=== PATIENT | female | born 1930 | race Caucasian/White ===

== ENCOUNTER 2019-08-01 14:54 | Inpatient (IN) ==
--- NOTE | 2019-08-01 15:05 | Emergency Department Note ---
Disposition Clinical Impression: Lower GI bleed, Diverticulosis Disposition: Admitted As Inpatient Referrals: NONE,PCP [Non-Partnered Physician] - Forms: ED Satisfaction Letter Time of Disposition: 17:07 General Adult HPI - General Chief complaint: ED Nausea/Vomiting/Diarrhea Stated complaint: Cdiff or GI bleed Time Seen by Provider: 08/01/19 15:04 Source: patient, family Mode of arrival: private vehicle Limitations: no limitations Nursing Notes Reviewed: Yes Vital Signs Reviewed: Yes - History of Present Illness HPI Narrative: Patient is an 89-year-old female with a past medical history including COPD on 2 L of oxygen per nasal cannula, coronary artery disease, hypothyroidism, presenting with chief complaint of blood in her stool for the last 5 days. The patient states 2 weeks ago she had a mechanical fall on her buttock. She did not hit her head or lose consciousness. She states several days later, she developed constipation and did not have a bowel movement for approximately 5 days. About 5-6 days ago, she had an episode of loose watery stools and she took antidiarrheal medication. For the last 5 days, she has been having daily bowel movements. Approximately 1-3 times a day, she will have a brown bowel movements with maroon red coloring. It does not feel the stool however it is on the toilet paper and within the stool. The stool is soft. Patient states about 5 days ago, she did have a low-grade fever, mild headache and crampy abdominal pain. She states those symptoms have resolved and she took Tylenol but has not had any since. She notes a decreased appetite. She denies any nausea or vomiting. States she has only had a history of a section. She had a colonoscopy approximately 20 years ago. She is not on anticoagulation use. Primary care physician was called today and recommended the patient coming in further emergency Department to evaluate for GI bleed. Pain Scale: 0 - Related Data Home Medications Medication Instructions Recorded Confirmed Calcium Citrate 250 mg PO DAILY 09/01/15 09/01/15 Cetirizine HCl [Zyrtec] 10 mg PO DAILY 09/01/15 09/01/15 Levothyroxine [Synthroid] 75 mcg PO QAM 09/01/15 09/01/15 Previous Rx's Medication Instructions Recorded Omeprazole [PriLOSEC] 20 mg PO DAILY #30 capsule. 09/03/15 Allergies Allergy/AdvReac Type Severity Reaction Status Date / Time Cortisone AdvReac Unknown Hives Verified 09/01/15 11:17 All systems ED: reviewed and negative except as stated. Review of Systems: As Per HPI Constitutional: Denies: fever, chills Cardiovascular: Denies: chest pain, palpitations Respiratory: Denies: cough, dyspnea Gastrointestinal: Reports: nausea, diarrhea, hematochezia. Denies: abdominal pain, vomiting Genitourinary: Denies: dysuria Musculoskeletal: Denies: back pain, neck pain Neurological: Denies: weakness, numbness Past Medical History - Past Medical History Attestation: Yes The following information was validated with the patient. Source: patient Medical history: Reports: COPD, myocardial infarction, thyroid disease, other Surgical history: Reports: other Psychiatric history: Reports: no psych history PUBLIC ADDRESS SYSTEM INSTALLER history: Reports: no PUBLIC ADDRESS SYSTEM INSTALLER history - Social History Smoking Status: Never smoker Smokeless Tobacco Status: No Alcohol use: Reports: none Drug use: Reports: none Physical Exam - General Limitations: no limitations General appearance: alert, in no apparent distress - Head Head exam: atraumatic, normocephalic - Eye Eye exam: Present: normal appearance, EOMI - ENT ENT exam: normal exam, normal oropharynx - Neck Neck exam: Present: normal inspection, trachea midline - Chest Chest inspection: Present: normal inspection, symmetric chest wall rise - Respiratory Respiratory exam: Present: normal lung sounds bilaterally. Absent: respiratory distress, wheezes - Cardiovascular Cardiovascular exam: Present: regular rate, normal rhythm, normal heart sounds - Abdominal Exam Abdominal exam: Present: soft, Non-Tender. Absent: distention, guarding, rebound - Rectal Exam Rectal exam: Present: normal rectal tone, other (brown and maroon colored soft stool without rectal tears or external hemorrhoids, no internal hemorrhoids) - Extremities Exam Extremities exam: Present: full ROM, normal capillary refill, other (healing ecchymosis on her right buttocks) - Neurological Exam Neurological exam: Present: alert, oriented X3 - Psychiatric Psychiatric exam: Present: normal affect, normal mood - Skin Skin exam: Present: warm, dry Course Vital Signs Temperature 97.3 F L 08/01/19 14:54 Pulse Rate 71 08/01/19 14:54 Respiratory Rate 16 08/01/19 14:54 Blood Pressure 143/80 08/01/19 14:54 O2 Sat by Pulse Oximetry 99 08/01/19 14:54 Temperature 97.3 F L 08/01/19 14:54 Pulse Rate 71 08/01/19 14:54 Respiratory Rate 16 08/01/19 14:54 Blood Pressure 143/80 08/01/19 14:54 O2 Sat by Pulse Oximetry 99 08/01/19 14:54 Oxygen Delivery Oxygen Delivery Nasal Cannula Medical Decision Making - MDM Narrative Medical decision making narrative: Patient's vitals is within normal limits, she is afebrile. She is in no acute distress and has no acute complaints at this time other than having maroon colored stools. Rectal examination was performed and shows maroon-colored soft stools and was sent down for Hemoccult. We will obtain CBC, type and screen, BMP, lactate, CT abdomen and pelvis with IV contrast. Disposition is pending. Patient is not on anticoagulation use and she has never had a history of this before. Denies daily motrin/aleve use. 16:50 Labs and imaging reviewed. The patient likely has a diverticular bleed. There is posttraumatic hematoma on the right buttocks that is noted, there is no overlying ulceration or abscess on examination as there is healing ecchymosis from her fall several weeks ago. She had no tenderness to palpation. We will admit the patient for observation of hemoglobin and hematocrit and may need future colonoscopy. At this time vitals remained stable, she has no abdominal pain. 17:00 Discussed with admitting hospitalist who accepts admission - Medical Records Medical records reviewed: Yes I reviewed the patient's medical records. - Lab Data Lab results reviewed: Yes I reviewed the patient's lab results. Result diagrams: 08/01/19 15:40 08/01/19 15:40 Lab Results 08/01/19 08/01/19 08/01/19 Range/Units 15:20 15:40 15:40 WBC 8.5 (4.3-11.1) K/mcL RBC 4.16 (3.82-4.97) M/mcL Hgb 11.2 L (11.5-15.4) g/dL Hct 36.4 (35.3-44.9) % MCV 87.5 (83.0-100.0) fL MCH 26.9 L (28.0-33.3) pg MCHC 30.8 L (31.6-35.5) g/dL RDW 13.5 (11.5-14.5) % Plt Count 307 (140-400) K/mcL MPV 9.0 L (9.4-12.4) fL Immature Gran % 0.5 (0-4) % Seg Neutrophils % 73.5 % Lymphocytes % 18.6 % Monocytes % 4.3 % Eosinophils % 2.5 % Basophils % 0.6 % Neutrophils # 6.2 (1.6-8.9) K/mcL Lymphocytes # 1.6 (0.6-4.6) K/mcL Monocytes # 0.4 (0.0-1.3) K/mcL Eosinophils # 0.2 (0.0-0.6) K/mcL Basophils # 0.1 (0.0-0.2) K/mcL Sodium 138 (136-145) mEq/L Potassium 4.8 (3.5-5.1) mEq/L Chloride 100 (98-107) mEq/L Carbon Dioxide 33 H (23-29) mEq/L BUN 25 H (8-23) mg/dL Creatinine 1.53 H (0.60-1.20) mg/dL Est GFR ( Amer) 39 L (> 60) Est GFR (Non-Af Amer) 32 L (> 60) BUN/Creatinine Ratio 16 (6-26) Glucose 129 H (70-105) mg/dL Calculated Osmolality 292 (280-300) Lactic Acid (0.5-2.2) mmol/L Calcium 9.6 (8.6-10.3) mg/dL Stool Occult Bld Scrn Positive A (Negative) Blood Type Antibody Screen 08/01/19 08/01/19 Range/Units 15:40 15:40 WBC (4.3-11.1) K/mcL RBC (3.82-4.97) M/mcL Hgb (11.5-15.4) g/dL Hct (35.3-44.9) % MCV (83.0-100.0) fL MCH (28.0-33.3) pg MCHC (31.6-35.5) g/dL RDW (11.5-14.5) % Plt Count (140-400) K/mcL MPV (9.4-12.4) fL Immature Gran % (0-4) % Seg Neutrophils % % Lymphocytes % % Monocytes % % Eosinophils % % Basophils % % Neutrophils # (1.6-8.9) K/mcL Lymphocytes # (0.6-4.6) K/mcL Monocytes # (0.0-1.3) K/mcL Eosinophils # (0.0-0.6) K/mcL Basophils # (0.0-0.2) K/mcL Sodium (136-145) mEq/L Potassium (3.5-5.1) mEq/L Chloride (98-107) mEq/L Carbon Dioxide (23-29) mEq/L BUN (8-23) mg/dL Creatinine (0.60-1.20) mg/dL Est GFR ( Amer) (> 60) Est GFR (Non-Af Amer) (> 60) BUN/Creatinine Ratio (6-26) Glucose (70-105) mg/dL Calculated Osmolality (280-300) Lactic Acid 1.7 (0.5-2.2) mmol/L Calcium (8.6-10.3) mg/dL Stool Occult Bld Scrn (Negative) Blood Type O POSITIVE Antibody Screen NEGATIVE - Radiology Data Radiology results reviewed: Yes I reviewed the patient's radiology results. Abdomen/Pelvis CT 08/01/19 16:37 IMPRESSION: Focal fluid seen in the right gluteal region, with surrounding fat stranding. That may represent a posttraumatic hematoma or seroma along with a soft tissue contusion. However, correlate with any clinical evidence of infection. Also, correlate with any evidence of overlying skin ulceration. Cholelithiasis. Nonobstructing nephrolithiasis. Moderate-sized hiatal hernia. Moderate diverticulosis of the sigmoid colon, but without CT evidence of diverticulitis. D/ / Nimesh Benedict MD / Nimesh Benedict MD Interpreting Provider: Nimesh Benedict MD
[2019-08-01] MEDS ORDERED: 0.9 % Sodium Chloride 500 ML IVC ONE (15:23)
[2019-08-01] MEDS ORDERED: Isovue-370 500 ML BOTTLE IVP ONE (15:23)
[2019-08-01 15:53] LABS: Basophils # 0.1 K/mcL (0.0-0.2); Basophils % 0.6 %; Eosinophils # 0.2 K/mcL (0.0-0.6); Eosinophils % 2.5 %; Hematocrit 36.4 % (35.3-44.9); Hemoglobin 11.2 g/dL (11.5-15.4); Immature Granulocytes % 0.5 % (0-4); Lymphocytes # 1.6 K/mcL (0.6-4.6); Lymphocytes % 18.6 %; Mean Corpuscular HGB Conc 30.8 g/dL (31.6-35.5); Mean Corpuscular Hemoglobin 26.9 pg (28.0-33.3); Mean Corpuscular Volume 87.5 fL (83.0-100.0); Monocytes # 0.4 K/mcL (0.0-1.3); Monocytes % 4.3 %; Neutrophils # 6.2 K/mcL (1.6-8.9); Platelet Count 307 K/mcL (140-400); Red Blood Count 4.16 M/mcL (3.82-4.97); Red Cell Distribution Width 13.5 % (11.5-14.5); Segmented Neutrophils % 73.5 %; White Blood Count 8.5 K/mcL (4.3-11.1)
[2019-08-01 16:11] LABS: Calcium 9.6 mg/dL (8.6-10.3); Potassium 4.8 mEq/L (3.5-5.1)
--- NOTE | 2019-08-01 17:00 | Emergency Department Note ---
Disposition Clinical Impression: Lower GI bleed, Diverticulosis Disposition: Admitted As Inpatient Condition: Fair Forms: ED Satisfaction Letter Time of Disposition: 16:59 General Adult HPI - General Chief complaint: ED Nausea/Vomiting/Diarrhea Stated complaint: Cdiff or GI bleed Time Seen by Provider: 08/01/19 15:04 Source: patient, family Mode of arrival: private vehicle Limitations: no limitations Nursing Notes Reviewed: Yes Vital Signs Reviewed: Yes - History of Present Illness Pain Scale: 0 - Related Data Home Medications Medication Instructions Recorded Confirmed Calcium Citrate 250 mg PO DAILY 09/01/15 09/01/15 Cetirizine HCl [Zyrtec] 10 mg PO DAILY 09/01/15 09/01/15 Levothyroxine [Synthroid] 75 mcg PO QAM 09/01/15 09/01/15 Previous Rx's Medication Instructions Recorded Omeprazole [PriLOSEC] 20 mg PO DAILY #30 capsule. 09/03/15 Allergies Allergy/AdvReac Type Severity Reaction Status Date / Time Cortisone AdvReac Unknown Hives Verified 09/01/15 11:17 Constitutional: Denies: fever, chills Cardiovascular: Denies: chest pain, palpitations Respiratory: Denies: cough, dyspnea Gastrointestinal: Reports: nausea, diarrhea, hematochezia. Denies: abdominal pain, vomiting Genitourinary: Denies: dysuria Musculoskeletal: Denies: back pain, neck pain Neurological: Denies: weakness, numbness Past Medical History - Past Medical History Medical history: Reports: COPD, myocardial infarction, thyroid disease, other Surgical history: Reports: other Psychiatric history: Reports: no psych history MYSQL DATABASE ADMINISTRATOR history: Reports: no MYSQL DATABASE ADMINISTRATOR history - Social History Smoking Status: Never smoker Smokeless Tobacco Status: No Alcohol use: Reports: none Drug use: Reports: none Physical Exam - General Limitations: no limitations General appearance: alert, in no apparent distress Course Vital Signs Temperature 97.3 F L 08/01/19 14:54 Pulse Rate 71 08/01/19 14:54 Respiratory Rate 16 08/01/19 14:54 Blood Pressure 143/80 08/01/19 14:54 O2 Sat by Pulse Oximetry 99 08/01/19 14:54 Temperature 97.3 F L 08/01/19 14:54 Pulse Rate 71 08/01/19 14:54 Respiratory Rate 16 08/01/19 14:54 Blood Pressure 143/80 08/01/19 14:54 O2 Sat by Pulse Oximetry 99 08/01/19 14:54 Oxygen Delivery Oxygen Delivery Nasal Cannula Medical Decision Making - Lab Data Result diagrams: 08/01/19 15:40 08/01/19 15:40 Lab Results 08/01/19 08/01/19 08/01/19 Range/Units 15:20 15:40 15:40 WBC 8.5 (4.3-11.1) K/mcL RBC 4.16 (3.82-4.97) M/mcL Hgb 11.2 L (11.5-15.4) g/dL Hct 36.4 (35.3-44.9) % MCV 87.5 (83.0-100.0) fL MCH 26.9 L (28.0-33.3) pg MCHC 30.8 L (31.6-35.5) g/dL RDW 13.5 (11.5-14.5) % Plt Count 307 (140-400) K/mcL MPV 9.0 L (9.4-12.4) fL Immature Gran % 0.5 (0-4) % Seg Neutrophils % 73.5 % Lymphocytes % 18.6 % Monocytes % 4.3 % Eosinophils % 2.5 % Basophils % 0.6 % Neutrophils # 6.2 (1.6-8.9) K/mcL Lymphocytes # 1.6 (0.6-4.6) K/mcL Monocytes # 0.4 (0.0-1.3) K/mcL Eosinophils # 0.2 (0.0-0.6) K/mcL Basophils # 0.1 (0.0-0.2) K/mcL Sodium 138 (136-145) mEq/L Potassium 4.8 (3.5-5.1) mEq/L Chloride 100 (98-107) mEq/L Carbon Dioxide 33 H (23-29) mEq/L BUN 25 H (8-23) mg/dL Creatinine 1.53 H (0.60-1.20) mg/dL Est GFR ( Amer) 39 L (> 60) Est GFR (Non-Af Amer) 32 L (> 60) BUN/Creatinine Ratio 16 (6-26) Glucose 129 H (70-105) mg/dL Calculated Osmolality 292 (280-300) Lactic Acid (0.5-2.2) mmol/L Calcium 9.6 (8.6-10.3) mg/dL Stool Occult Bld Scrn Positive A (Negative) Blood Type Antibody Screen 08/01/19 08/01/19 Range/Units 15:40 15:40 WBC (4.3-11.1) K/mcL RBC (3.82-4.97) M/mcL Hgb (11.5-15.4) g/dL Hct (35.3-44.9) % MCV (83.0-100.0) fL MCH (28.0-33.3) pg MCHC (31.6-35.5) g/dL RDW (11.5-14.5) % Plt Count (140-400) K/mcL MPV (9.4-12.4) fL Immature Gran % (0-4) % Seg Neutrophils % % Lymphocytes % % Monocytes % % Eosinophils % % Basophils % % Neutrophils # (1.6-8.9) K/mcL Lymphocytes # (0.6-4.6) K/mcL Monocytes # (0.0-1.3) K/mcL Eosinophils # (0.0-0.6) K/mcL Basophils # (0.0-0.2) K/mcL Sodium (136-145) mEq/L Potassium (3.5-5.1) mEq/L Chloride (98-107) mEq/L Carbon Dioxide (23-29) mEq/L BUN (8-23) mg/dL Creatinine (0.60-1.20) mg/dL Est GFR ( Amer) (> 60) Est GFR (Non-Af Amer) (> 60) BUN/Creatinine Ratio (6-26) Glucose (70-105) mg/dL Calculated Osmolality (280-300) Lactic Acid 1.7 (0.5-2.2) mmol/L Calcium (8.6-10.3) mg/dL Stool Occult Bld Scrn (Negative) Blood Type O POSITIVE Antibody Screen NEGATIVE Attestation Statement - Attestation Attestation: I have seen this patient with the resident physician, I have personally e valuated this patient. I had reviewed the chart and document dictation by the resident physician and aM in agreement with the information documented by the resident physician. Please see documentation by the resident physician for complete chart including past medical history, family medical history, review of systems, current history and physical and laboratory and imaging studies. I was present for all procedures, provided direct supervision for all procedures, was present for the entirety of all procedures and provided direct guidance during the procedures. Please see documentation by the resident physician for any procedures performed. I have reviewed all interpretations of EKGs, and reviewed all EKGs performed on patient's as well. I have also reviewed reports of imaging as provided by radiology. Patient presented to the emergency department with chief complaint of rectal ble eding, she has noticed some dark stool for a couple of days seemed worse today. Denies headache neck pain chest pain shortness of breath fever chills cough sputum production abdominal pain. Denies bleeding from any other sources. Upon presentation, she is alert oriented 3 nontoxic in appearance in no acute distress cranial nerves are grossly intact. Lungs are clear heart is regular no murmurs rubs or gallops abdomen is soft and nontender. Rectal exam revealed maroon-colored stool Hemoccult-positive. Laboratory studies were within acceptable limits vital signs are within acceptable limits she is not on any blood thinners however is 89 years old with evidence of some borderline hematochezia with dark maroon purple stool. She will undergo a CT scan, and be admitted to the hospital CT scan showed diverticulosis no diverticulitis no other acute intra-abdominal process. Patient was admitted for further evaluation and management of lower GI bleeding.
[2019-08-01] MEDS ORDERED: Ondansetron 4 MG/2 ML VIAL IVP PRN (17:43)
--- NOTE | 2019-08-01 17:53 | Internal Med History&Physical ---
Date of Encounter: 08/01/19 Time of Encounter: 18:30 Internal Medicine - H&P: HPI Chief complaint: Lower GI bleed Admitted From: Home Plans for Post Hospital Care: Home History of present illness: Ms. Lee is a 89 year old female with history of COPD stage III, COPD on 2 L, type II DM, hypothyroidism who came into the hospital with her daughter due to 2 days history of lower GI bleed. As per the daughter, patient was constipated for 5 days and then she had stool softener daily to go when she started to have loose stools with bad smell. The daughter was not able to see the stool color as her mother To flush the toilet but she was able to see the toilet papers covered with blood. Patient denied any abdominal pain, nausea, vomiting, fever, recent antibiotic use or recent hospitalization. Patient also had a fall 2 weeks ago after she lost her balance and she fell on her buttocks. She had colonoscopy 20 years ago with finding of polyps. 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 In the ED, patient was hemodynamically stable, afebrile. The vertebrae workup revealed hemoglobin 11.2, creatinine 1.5, BUN [address] of the abdomen revealed focal fluid collection in the right gluteal region with surrounding fat stranding that may represent posttraumatic hematoma or seroma. Diverticulosis without diverticulitis, nonobstructing nephrolithiasis. He received IV fluids in the ED Past Med Surg Social Fam HX - Past Medical History Source: patient Medical history: COPD, kidney stones, myocardial infarction, thyroid disease, other Additional medical history: obstructive sleep apnea, hard of hearing Psychiatric history: no psych history - Past Surgical History Surgical History: other Additional surgical history: tubal ligation, kidney stone removal - Social History Smoking Status: Never smoker Smokeless Tobacco Status: No Alcohol use: none Drug use: none Current living situation: Home - Independent Activity Level: Uses cane/walker Recent Out of Country Travel Within the Last 8 Weeks: No Exposure or Possible Exposure to Illness During Travel: No - Family History Mother Living Status: Sister Living Status: - Additional Family History Additional family history: Reviewed and noncontributory, no family history of cancers. Internal Medicine - H&P: Meds Calcium Citrate 250 mg PO DAILY 09/01/15 [History] Cetirizine HCl [Zyrtec] 10 mg PO DAILY PRN 09/01/15 [History] Levothyroxine [Synthroid] 75 mcg PO QAM 09/01/15 [History] Aspirin [Lo-Dose Aspirin EC] 81 mg PO 08/01/19 [History] Cholecalciferol (D-3) [Vitamin D] 5,000 unit PO DAILY 08/01/19 [History] DiphenhydraMINE [Benadryl] 25 mg PO HS 08/01/19 [History] Vitamin B12 08/01/19 [History] Allergy/AdvReac Type Severity Reaction Status Date / Time Cortisone AdvReac Unknown Hives Verified 09/01/15 11:17 All Systems PM: A 10-system review of systems was performed and is negative for pertinent findings except as documented above in the HPI. - Constitutional Vitals: Temp Pulse Resp BP Pulse Ox 97.3 F L 75 20 144/67 96 08/01/19 14:54 08/01/19 17:12 08/01/19 17:12 08/01/19 17:12 08/01/19 17:12 Exam: General: Patient is alert, oriented 3. Head: Atraumatic, normal inspection, normocephalic. Eye: EOMI, PERRLA, no scleral icterus noted. ENT: Mucous membranes moist. Neck: Normal inspection, Respiratory: Scattered wheezing bilaterally Cardiovascular: Regular rate and regular rhythm, GI: Soft, nondistended, normal bowel sounds. Extremities:No joint swelling, pedal edema, or tenderness noted. Right buttock hematoma and swelling with minimal tenderness with palpation. Neurological: Alert, oriented 3, no focal deficits. Psychiatric: normal affect, normal mood. Skin: Dry, intact, warm. Normal color. No rashes. Internal Med - H&P Results - Labs CBC & Chem 7: 08/01/19 15:40 08/01/19 15:40 Labs: Short CBC 08/01/19 Range/Units 15:40 WBC 8.5 (4.3-11.1) K/mcL Hgb 11.2 L (11.5-15.4) g/dL Hct 36.4 (35.3-44.9) % Plt Count 307 (140-400) K/mcL Neutrophils # 6.2 (1.6-8.9) K/mcL BMP 08/01/19 15:40 Sodium 138 Potassium 4.8 Chloride 100 Carbon Dioxide 33 H BUN 25 H Creatinine 1.53 H Glucose 129 H Calcium 9.6 - Impressions ITS Impressions Abdomen/Pelvis CT 08/01/19 16:37 IMPRESSION: Focal fluid seen in the right gluteal region, with surrounding fat stranding. That may represent a posttraumatic hematoma or seroma along with a soft tissue contusion. However, correlate with any clinical evidence of infection. Also, correlate with any evidence of overlying skin ulceration. Cholelithiasis. Nonobstructing nephrolithiasis. Moderate-sized hiatal hernia. Moderate diverticulosis of the sigmoid colon, but without CT evidence of diverticulitis. D/ / Nimesh Benedict MD / Nimesh Benedict MD Interpreting Provider: Nimesh Benedict MD - Assessment and Plan (1) Hematochezia Current Visit: Yes Status: Acute (2) CKD (chronic kidney disease) stage 3, GFR 30-59 ml/min Current Visit: Yes Status: Chronic (3) Diverticulosis Current Visit: Yes Status: Chronic (4) COPD (chronic obstructive pulmonary disease) Current Visit: Yes Status: Chronic Qualifiers: COPD type: unspecified COPD Qualified Code(s): J44.9 - Chronic obstructive pulmonary disease, unspecified (5) DVT prophylaxis Current Visit: Yes Status: Acute - Summary of Assessment and Plan Summary of Assessment and Plan: Hematochezia: Suspected hemorrhoidal bleed. Hemoglobin is stable. Check CBC tomorrow, keep nothing by mouth and consult GI. Will check GI panel to rule out infection. Ckd stage III: Creatinine is stable, check BMP tomorrow Hypothyroidism: Continue home medication COPD: 2 L, albuterol as needed. DVT prophylaxis: scd - Time Spent With Patient Total time spent is greater than 50% in coordination of care (as documented) at patient's floor/unit and/or counseling patient:
[2019-08-01] MEDS ORDERED: Loratadine 10 MG TABLET PO PRN (17:57)
[2019-08-01 19:13] LABS: Potassium 4.6 mEq/L (3.5-5.1)
[2019-08-01 23:00] LABS: Hematocrit 34.4 % (35.3-44.9); Hemoglobin 10.3 g/dL (11.5-15.4)
[2019-08-01 23:52] LABS: Adenovirus F 40/41 PCR Not detected (Not detect); Astrovirus PCR Not detected (Not detect); C.difficile Toxin A/B Gene PCR Not detected (Not detect); Campylobacter by PCR Not detected (Not detect); Cryptosporidium by PCR Not detected (Not detect); Cyclospora cayetanensis PCR Not detected (Not detect); E. coli O157 by PCR Not detected (Not detect); Entamoeba histolytica PCR Not detected (Not detect); Enteroaggregative E.coli(EAEC) Not detected (Not detect); Enteropathogenic E.coli(EPEC) Not detected (Not detect); Enterotoxigenic E.coli (ETEC) Not detected (Not detect); Giardia lamblia PCR Not detected (Not detect); Norovirus GI/GII PCR Not detected (Not detect); Plesiomonas shigelloides PCR Not detected (Not detect); Rotavirus A PCR Not detected (Not detect); Salmonella PCR Not detected (Not detect); Sapovirus PCR Not detected (Not detect); Shig/EnteroinvasiveE coli EIEC Not detected (Not detect); Shigalike tox-prod E coli STEC Not detected (Not detect); Vibrio PCR Not detected (Not detect); Vibrio cholerae PCR Not detected (Not detect); Yersinia enterocolitica PCR Not detected (Not detect)
[2019-08-02 06:15] LABS: Hematocrit 33.1 % (35.3-44.9); Hemoglobin 9.9 g/dL (11.5-15.4); Mean Corpuscular HGB Conc 29.9 g/dL (31.6-35.5); Mean Corpuscular Hemoglobin 27.3 pg (28.0-33.3); Mean Corpuscular Volume 91.2 fL (83.0-100.0); Mean Platelet Volume 9.3 fL (9.4-12.4); Platelet Count 289 K/mcL (140-400); Red Blood Count 3.63 M/mcL (3.82-4.97); Red Cell Distribution Width 13.6 % (11.5-14.5); White Blood Count 6.9 K/mcL (4.3-11.1)
[2019-08-02 06:33] LABS: Prothrombin Time 11.7 Seconds (9.4-12.1)
[2019-08-02] MEDS: Aspirin Enteric Coated 81 MG Tablet PO SCH (08:43)
[2019-08-02] MEDS: Cholecalciferol (D-3) 1,000 UNIT (25MCG) TABLET PO SCH (08:43)
--- NOTE | 2019-08-02 11:00 | Internal Med Progress Note ---
Hospitalist Progress Note - Encounter Date of Encounter: 08/02/19 Time of Encounter: 08:20 - Subjective Interval History: Patient was seen this morning. She had 3 bowel movements yesterday night. As per the nurse, first one was bloody and the risks were black. Patient denied nausea/vomiting or abdominal pain. She has no fever, chills or night sweats. - Exam Vitals: Temp Pulse Resp BP Pulse Ox 98.3 F 81 20 142/82 99 08/02/19 10:47 08/02/19 10:47 08/02/19 10:47 08/02/19 10:47 08/02/19 10:47 Exam: General: Patient is alert, oriented 3. Head: Atraumatic, normal inspection, normocephalic. Eye: EOMI, PERRLA, no scleral icterus noted. ENT: Mucous membranes moist. Hard of hearing Neck: Normal inspection, Respiratory: Clear to auscultation Cardiovascular: Regular rate and regular rhythm, GI: Soft, nondistended, normal bowel sounds. Extremities:No joint swelling, pedal edema, or tenderness noted. Right buttock hematoma and swelling with minimal tenderness with palpation. Neurological: Alert, oriented 3, no focal deficits. Psychiatric: normal affect, normal mood. Skin: Dry, intact, warm. Normal color. No rashes. - Assessment and Plan (1) Hematochezia Current Visit: Yes Status: Acute (2) CKD (chronic kidney disease) stage 3, GFR 30-59 ml/min Current Visit: Yes Status: Chronic (3) Diverticulosis Current Visit: Yes Status: Chronic (4) COPD (chronic obstructive pulmonary disease) Current Visit: Yes Status: Chronic (5) DVT prophylaxis Current Visit: Yes Status: Acute - Summary of Assessment and Plan Summary of Assessment and Plan: Hematochezia: Hg dropped from 11.2 to 9.9 today. Check CBC tomorrow, consult GI. GI panel is - for infection. Ckd stage III: Creatinine is stable, check BMP tomorrow Hypothyroidism: Continue home medication COPD: 2 L, albuterol as needed. DVT prophylaxis: scd - Time Spent with Patient Total time spent is greater than 50% in coordination of care (as documented) at patient's floor/unit and/or counseling patient: Plan of Care Discussed with: patient Internal Medicine: Result - Labs CBC & Chem 7: 08/02/19 05:49 09/17/19 18:31 Labs: Short CBC 08/01/19 08/01/19 08/02/19 Range/Units 15:40 22:40 05:49 WBC 8.5 6.9 (4.3-11.1) K/mcL Hgb 11.2 L 10.3 L 9.9 L (11.5-15.4) g/dL Hct 36.4 34.4 L 33.1 L (35.3-44.9) % Plt Count 307 289 (140-400) K/mcL Neutrophils # 6.2 (1.6-8.9) K/mcL BMP 08/01/19 08/01/19 15:40 18:31 Sodium 138 140 Potassium 4.8 4.6 Chloride 100 103 Carbon Dioxide 33 H 33 H BUN 25 H 23 Creatinine 1.53 H 1.40 H Glucose 129 H 93 Calcium 9.6 9.0 - ABG Interpretation ABG results: PT/INR, D-dimer PT 11.7 Seconds (9.4-12.1) 08/02/19 05:49 - Impressions Impressions Abdomen/Pelvis CT 08/01/19 16:37 IMPRESSION: Focal fluid seen in the right gluteal region, with surrounding fat stranding. That may represent a posttraumatic hematoma or seroma along with a soft tissue contusion. However, correlate with any clinical evidence of infection. Also, correlate with any evidence of overlying skin ulceration. Cholelithiasis. Nonobstructing nephrolithiasis. Moderate-sized hiatal hernia. Moderate diverticulosis of the sigmoid colon, but without CT evidence of diverticulitis. D/ / Nimesh Benedict MD / Nimesh Benedict MD Interpreting Provider: Nimesh Benedict MD Consult Discharge Plan - Plan Referrals: NONE,PCP [Primary Care Provider] - (4) COPD (chronic obstructive pulmonary disease) Qualifiers: COPD type: unspecified COPD Qualified Code(s): J44.9 - Chronic obstructive pulmonary disease, unspecified
--- NOTE | 2019-08-02 12:15 | Gastroenterology Consult Note ---
<Nima Tovar - Last Filed: 08/02/19 12:12> Date of Encounter: 08/02/19 Time of Encounter: 10:20 - Assessment and plan (1) Anemia Current Visit: Yes Status: Acute Assessment and plan: On 06/13/2019 Hgb 13.1. On admission Hgb 11.2, and today Hgb 9.9. Fecal occult blood test positive. Continue to monitor CBC and transfuse PRBC as needed. Plan for colonoscopy tomorrow. Clear liquid diet today, no red or purple. NPO at midnight. If unable tolerate NuLytely please use MiraLAX prep. If not clear by 6 AM, give 2 tap water enemas. Qualifiers: Anemia type: unspecified type Qualified Code(s): D64.9 - Anemia, unspecified (2) Lower GI bleed Current Visit: Yes Status: Acute Assessment and plan: As above. - Time Spent With Patient Total time spent is greater than 50% in coordination of care (as documented) at patient's floor/unit and/or counseling patient: GI History of Present Illness - Data of Consult Patient: new to practice Consult date: 08/02/19 Requesting Physician: Vandana Bolaños - Consult Narrative Reason for consult: Lower GI bleed History of present illness: Ms. Lee is a 89 year old female with PMHx of COPD, [place], JEWEL, DM who presented to the ED with 2 days of lower GI bleed. She reports having large foul smelling BM after 5 days of constipation. Daughter reportsbright red blood with wiping. Patient denies any fever, chills, chest pain, abdominal pain, nausea, vomiting. Patient had BRBPR and black stools per RN. On 06/13/2019 Hgb 13.1, on admission Hgb 11.2, and today Hgb 9.9. Fecal occult blood test positive. Procedures: EGD 09/02/2015 Dr. Carr: Schatzki ring which was dilated, gastritis, duodenitis, medium hiatal hernia. EGD 12/26/2012 Dr. Novoa: Duodenal ulcer, gastritis, eosinophilic gastroenteritis. NSAIDs: ASA Anticoagulation: None Past Med Surg Social Fam HX - Past Medical History Medical history: COPD, kidney stones, myocardial infarction, thyroid disease, other Additional medical history: obstructive sleep apnea, hard of hearing Psychiatric history: no psych history - Past Surgical History Surgical History: Additional surgical history: tubal ligation, kidney stone removal - Social History Smoking Status: Never smoker Smokeless Tobacco Status: No Alcohol use: none Drug use: none - Family History Mother Living Status: Sister Living Status: - Gastrointestinal Gastrointestinal: Present: as per HPI - Constitutional Constitutional: as per HPI - EENT Eyes: as per HPI Ears: Present: as per HPI Nose, mouth and throat: Present: as per HPI - Cardiovascular Cardiovascular ROS: Present: as per HPI - Respiratory Respiratory IM: Present: as per HPI - Genitourinary Genitourinary: Absent: change in color, Urinary frequency - Neurological ROS Neurological GI: Present: as per HPI - Hematologic/Lymphatic Hematologic/Lymphatic pediatric: Present: as per HPI - Musculoskeletal Musculoskeletal ROS GI: Present: as per HPI - Integumentary Integumentary GI: Present: as per HPI - Psychiatric ROS Psychiatric GI: Present: as per HPI - Endocrine Endocrine IM: Present: as per HPI - Constitutional Vitals: Temp Pulse Resp BP Pulse Ox 98.3 F 81 20 142/82 99 08/02/19 10:47 08/02/19 10:47 08/02/19 10:47 08/02/19 10:47 08/02/19 10:47 General appearance: Present: cooperative, A&O X 3, no acute distress, answers questions appropriately - Head Head exam: Present: atraumatic, normocephalic - Eye Eye exam: Present: normal appearance, sclera anicteric - ENT ENT exam: Present: mucous membranes moist - Neck Neck exam general surgery: Present: normal inspection, trachea midline - Respiratory Respiratory exam: Present: CTAB. Absent: rales, rhonchi - Cardiovascular Cardiovascular exam: Present: RRR, +S1, +S2 - GI/Abdominal GI/Abdominal exam: Present: soft, no peritoneal signs. Absent: distended, firm, guarding, tenderness - Rectal Rectal exam: Present: deferred - Extremities Exam Extremities exam: Present: warm - Neurological Exam Neurological exam: Present: no focal deficits - Psychiatric Psychiatric exam: Present: normal affect, normal mood - Skin Skin exam: Present: dry, intact, normal color, warm Results - Labs CBC & Chem 7: 08/02/19 05:49 08/01/19 18:31 Labs: Entire Visit 08/02/19 08/02/19 05:49 05:49 Hgb 9.9 L Hct 33.1 L PT 11.7 - ABG ABG results: PT/INR, D-dimer PT 11.7 Seconds (9.4-12.1) 08/02/19 05:49 - Impressions Impressions Abdomen/Pelvis CT 08/01/19 16:37 IMPRESSION: Focal fluid seen in the right gluteal region, with surrounding fat stranding. That may represent a posttraumatic hematoma or seroma along with a soft tissue contusion. However, correlate with any clinical evidence of infection. Also, correlate with any evidence of overlying skin ulceration. Cholelithiasis. Nonobstructing nephrolithiasis. Moderate-sized hiatal hernia. Moderate diverticulosis of the sigmoid colon, but without CT evidence of diverticulitis. D/ / Nimesh Benedict MD / Nimesh Benedict MD Interpreting Provider: Nimesh Benedict MD Consult Discharge Plan - Plan Referrals: NONE,PCP [Primary Care Provider] - <Shira Carr - Last Filed: 08/02/19 17:25> Date of Encounter: 08/02/19 Time of Encounter: 14:00 - Time Spent With Patient Total time spent is greater than 50% in coordination of care (as documented) at patient's floor/unit and/or counseling patient: GI History of Present Illness - Data of Consult Requesting Physician: Vandana Bolaños - Consult Narrative History of present illness: Ms. Lee is a 89 year old female - Constitutional Vitals: Temp Pulse Resp BP Pulse Ox 98.4 F 76 15 143/80 100 08/02/19 14:12 08/02/19 14:12 08/02/19 14:12 08/02/19 14:12 08/02/19 14:12 Results - Labs CBC & Chem 7: 08/02/19 05:49 08/01/19 18:31 Labs: Entire Visit 08/02/19 08/02/19 05:49 05:49 Hgb 9.9 L Hct 33.1 L PT 11.7 - ABG ABG results: PT/INR, D-dimer PT 11.7 Seconds (9.4-12.1) 08/02/19 05:49 - Attending Attestation I have personally performed a face to face evaluation on this patient. I have reviewed and agree with the care plan. History and Exam by me shows: Patient seen denies any abdominal pain. Does admit of having bleeding per rectum. On examination: Abdomen is soft. Assessment: Patient with lower GI bleed with drop in hemoglobin still has some bleeding in her stool. Recommendation: Follow H&H colonoscopy in the morning
[2019-08-02 16:33] LABS: Bilirubin,Urine Small (Negative); Blood,Urine Large (Negative); Clarity,Urine Clear (Clear); Color,Urine Yellow (Yellow); Glucose,Urine (UA) Normal (Normal); Ketones,Urine Negative (Negative); Leukocyte Esterase,Urine Moderate (Negative); Nitrite,Urine Negative (Negative); PH,Urine 5.5 pH Units (5.0-8.0); Protein,Urine Negative (Neg-Trace); Specific Gravity,Urine 1.018 (1.010-1.025); Urobilinogen,Urine Normal (Normal)
[2019-08-02 16:36] LABS: Bacteria,Urine None Seen per hpf (None-Few); Hyaline Casts,Urine None Seen per lpf (None-Few); RBC,Urine 0-3 per hpf (0-3); Squamous Epithelial Cell,Urine Many per lpf (None-Few); WBC,Urine 15-30 per hpf (0-3)
[2019-08-02] MEDS ORDERED: SODIUM CHLORIDE/NAHCO3/KCL/PEG 4,000 ML SOLN.RECON PO ONE (17:00)
[2019-08-02] MEDS: Pantoprazole 40 MG VIAL IVP SCH (17:30)
[2019-08-03 05:14] LABS: Hematocrit 31.6 % (35.3-44.9); Hemoglobin 9.5 g/dL (11.5-15.4); Mean Corpuscular HGB Conc 30.1 g/dL (31.6-35.5); Mean Corpuscular Volume 89.8 fL (83.0-100.0); Mean Platelet Volume 9.1 fL (9.4-12.4); Platelet Count 324 K/mcL (140-400); Red Blood Count 3.52 M/mcL (3.82-4.97); Red Cell Distribution Width 13.7 % (11.5-14.5); White Blood Count 10.2 K/mcL (4.3-11.1)
[2019-08-03 05:36] LABS: Calcium 8.7 mg/dL (8.6-10.3); Potassium 4.3 mEq/L (3.5-5.1)
[2019-08-03] MEDS: Pantoprazole 40 MG VIAL IVP SCH (05:44)
[2019-08-03] MEDS: Cholecalciferol (D-3) 1,000 UNIT (25MCG) TABLET PO SCH (09:05)
[2019-08-03] MEDS: Aspirin Enteric Coated 81 MG Tablet PO SCH (09:05)
--- NOTE | 2019-08-03 11:46 | Anesthesia Evaluation PreOp ---
Date of Encounter: 08/03/19 Time of Encounter: 13:28 - Past History Planned Operation: colonoscopy Cardiac History: [place], HTN, Hyperlipidemia Pulmonary History: COPD (on O2) UTILITY PIPE LAYER History: Other ([place]) Other Medical History: Renal (hx stones, CKD 3), Diabetes Type II, Thyroid (hypo), Other (diverticulosis) Anesthesia History: No Prior Anesthetic Complications, Past Anesthesia (tubal, stones, egd) Alcohol Use: none Drug use: none Medications and Allergies Calcium Citrate 250 mg PO DAILY 09/01/15 [History] Cetirizine HCl [Zyrtec] 10 mg PO DAILY PRN 09/01/15 [History] Aspirin [Lo-Dose Aspirin EC] 81 mg PO DAILY 08/01/19 [History] Cholecalciferol (D-3) [Vitamin D] 5,000 unit PO DAILY 08/01/19 [History] DiphenhydraMINE [Benadryl] 25 mg PO HS 08/01/19 [History] Levothyroxine Sodium [Euthyrox] 75 mcg PO QAM 08/01/19 [History] Riboflavin [Vitamin B-2] 100 mg PO DAILY 08/01/19 [History] Allergy/AdvReac Type Severity Reaction Status Date / Time Cortisone AdvReac Unknown Hives Verified 09/01/15 11:17 - Meds/Allergy Pre-op Review Medications Reviewed: Yes Allergies Reviewed: Yes Beta Blockers on Current Med List: No Anesthesia Results - Labs 08/03/19 05:00 08/03/19 05:00 Anesthesia Exam Selected Entries 08/03/19 11:30 Temperature 98.1 F Pulse Rate 77 Respiratory Rate 18 Blood Pressure 135/66 O2 Sat by Pulse Oximetry 99 Oxygen Delivery Method Oxymask Weight: 61kg - HEENT Pupil (Motor): EOMI Mallampati: II Teeth: Edentulous Oral Opening: Greater than 3 - UTILITY PIPE LAYER LOC: Oriented UTILITY PIPE LAYER Motor: Normal RUE, Normal LUE, Normal RLE, Normal LLE, Normal Face UTILITY PIPE LAYER Sensory: Normal: RUE, LUE, RLE, LLE, Face - Cardiac Rhythm: Regular Murmur: None - Pulmonary Breath Sounds: bilateral Clear Respiratory Effort: Symmetrical Anesthesia Assess/Plan ASA Score: 3 Level of consciousness: Cooperative, Oriented Anesthetic Plan: MAC Monitoring Plan: Standard Monitors Recovery Plan: Other (agrees to MAC)
[2019-08-03 13:34] VITALS: BP 149/59
[2019-08-03] MEDS ORDERED: Lidocaine -MPF 2% 2 ML VIAL ONE (14:06)
[2019-08-03] MEDS ORDERED: *HR* Propofol 200 MG/20 ML VIAL IVP ONE (14:06)
--- NOTE | 2019-08-03 15:55 | Discharge Summary ---
- NOTES TO OUTPATIENT PROVIDER Notes to Outpatient Provider: Patient was admitted for lower GI bleed. Colonoscopy showed internal hemorrhoids. She will be discharged on fiber diet. Check CBC in 5 days Date of Encounter: 08/03/19 Time of Encounter: 10:00 - Discharge Diagnosis (1) Hematochezia Priority: Primary Status: Resolved (2) CKD (chronic kidney disease) stage 3, GFR 30-59 ml/min Priority: Secondary Status: Chronic (3) Diverticulosis Priority: Secondary Status: Chronic (4) COPD (chronic obstructive pulmonary disease) Priority: Secondary Status: Chronic Qualifiers: COPD type: unspecified COPD Qualified Code(s): J44.9 - Chronic obstructive pulmonary disease, unspecified (5) DVT prophylaxis Priority: Secondary Status: Acute Hospital course: Ms. Lee is a 89 year old female who was managing the hospital for lower GI bleed. Colonoscopy revealed diverticulosis with internal hemorrhoids. Hemoglobin remained stable and patient will be discharged home in stable condition. Check CBC in 3-5 days. Discharge discussed with: patient - Time Spent with Patient Total time spent providing and/or coordinating discharge services: 35 minutes - Discharge Medications Prescriptions: New Psyllium Husk/Aspartame [Metamucil [facility] Powder] 660 gm PO BID #60 powder Continued Cetirizine HCl [Zyrtec] 10 mg PO DAILY PRN PRN Reason: Allergy Symptoms Calcium Citrate 250 mg PO DAILY DiphenhydraMINE [Benadryl] 25 mg PO HS Cholecalciferol (D-3) [Vitamin D] 5,000 unit PO DAILY Aspirin [Lo-Dose Aspirin EC] 81 mg PO DAILY Riboflavin [Vitamin B-2] 100 mg PO DAILY Levothyroxine Sodium [Euthyrox] 75 mcg PO QAM Home Medications: Calcium Citrate 250 mg PO DAILY 09/01/15 [History] Cetirizine HCl [Zyrtec] 10 mg PO DAILY PRN 09/01/15 [History] Aspirin [Lo-Dose Aspirin EC] 81 mg PO DAILY 08/01/19 [History] Cholecalciferol (D-3) [Vitamin D] 5,000 unit PO DAILY 08/01/19 [History] DiphenhydraMINE [Benadryl] 25 mg PO HS 08/01/19 [History] Levothyroxine Sodium [Euthyrox] 75 mcg PO QAM 08/01/19 [History] Riboflavin [Vitamin B-2] 100 mg PO DAILY 08/01/19 [History] Psyllium Husk/Aspartame [Metamucil [facility] Powder] 660 gm PO BID #60 powder 08/03/19 [Rx] Allergies/Adverse Reactions: Allergy/AdvReac Type Severity Reaction Status Date / Time Cortisone AdvReac Unknown Hives Verified 09/01/15 11:17 Date of admission: 08/03/19 10:42 Primary care physician: PCP NONE Consults: 08/01/19 17:45 Consult to Gastroenterology [CONS] Routine Consulting Provider: Gastroenterology [facility] Reason for Consult: lower GI bleed Call Completed: No - Constitutional Vitals: Temp Pulse Resp BP Pulse Ox 97.6 F 80 22 149/59 100 08/03/19 13:31 08/03/19 13:31 08/03/19 13:31 08/03/19 13:31 08/03/19 13:31 Exam: General: Patient is alert, oriented 3. Head: Atraumatic, normal inspection, normocephalic. Eye: EOMI, PERRLA, no scleral icterus noted. ENT: Mucous membranes moist. Hard of hearing Neck: Normal inspection, Respiratory: Clear to auscultation Cardiovascular: Regular rate and regular rhythm, GI: Soft, nondistended, normal bowel sounds. Extremities:No joint swelling, pedal edema, or tenderness noted. Right buttock hematoma and swelling with minimal tenderness with palpation. Neurological: Alert, oriented 3, no focal deficits. Psychiatric: normal affect, normal mood. Skin: Dry, intact, warm. Normal color. No rashes. - Patient Status Disposition: Home, Self-Care Condition: Good Functional capacity at discharge: uses cane/walker Overall status at discharge: patient is back to baseline - Discharge Instructions Follow Up With: NONE,PCP [Primary Care Provider] - - Diet and Activity Activity: increase activity as tolerated Diet: low salt diet
== END 2019-08-03 18:21 | disposition home or self-care (01) | DRG 379 ==
LOC: 3ANU 14:54 → EMEROOARM 14:54 → SUATTDRO 17:23 → 3ANU 18:15
PROVIDERS: ADMIT Internal Medicine; ATTEND Internal Medicine

== ENCOUNTER 2019-08-09 09:50 | Observation (INO) ==
--- NOTE | 2019-08-09 10:06 | Emergency Department Note ---
Disposition Clinical Impression: Acute electrocardiogram changes, Elevated troponin Anemia Qualifiers: Anemia type: unspecified type Qualified Code(s): D64.9 - Anemia, unspecified GI bleeding Qualifiers: GI bleed type/associated pathology: unspecified gastrointestinal hemorrhage type Qualified Code(s): K92.2 - Gastrointestinal hemorrhage, unspecified Disposition: Admitted As Inpatient Condition: Good Time of Disposition: 11:47 General Adult HPI - General Chief complaint: ED GI Bleed Stated complaint: Low Hemoglobin Time Seen by Provider: 08/09/19 10:02 Source: patient, family Limitations: no limitations Nursing Notes Reviewed: Yes Vital Signs Reviewed: Yes - History of Present Illness HPI Narrative: 89-year-old female who presents the emergency department with complaints of weakness and low blood count per her primary care physician. Patient was recently admitted for a colonoscopy and since that time went home, continued to feel weak and had some episodes of melena which have now resolved. She otherwise states she feels fatigued but denies any chest pain. She does experience worsening shortness of breath, she is on home 3 L oxygen but has been using her inhalers more frequently. She otherwise denies any hematochezia, abdominal pain, nausea, vomiting. Pain Scale: 0 - Related Data Home Medications Medication Instructions Recorded Confirmed Calcium Citrate 250 mg PO DAILY 09/01/15 08/09/19 Aspirin [Lo-Dose Aspirin EC] 81 mg PO HS 08/01/19 08/09/19 Cholecalciferol (D-3) [Vitamin D] 5,000 unit PO DAILY 08/01/19 08/09/19 DiphenhydraMINE [Benadryl] 25 mg PO HS 08/01/19 08/09/19 Levothyroxine Sodium [Euthyrox] 75 mcg PO QAM 08/01/19 08/09/19 Riboflavin [Vitamin B-2] 100 mg PO DAILY 08/01/19 08/09/19 Benefiber 4 gm PO DAILY 08/09/19 08/09/19 Albuterol Sulfate [Albuterol 1 puff PO Q4H PRN 08/10/19 08/10/19 Sulfate Hfa] Symbicort 160/4.5 2 inh PO BID 08/10/19 08/10/19 Previous Rx's Medication Instructions Recorded Omeprazole [PriLOSEC] 40 mg PO DAILY 15 Days #15 cap 08/11/19 Allergies Allergy/AdvReac Type Severity Reaction Status Date / Time Cortisone AdvReac Unknown Hives Verified 09/01/15 11:17 Review of Systems: ROS per history of present illness, all other systems reviewed and negative or normal. All systems ED: reviewed and negative except as stated. Review of Systems: As Per HPI Past Medical History - Past Medical History Medical history: Reports: COPD, kidney stones, myocardial infarction, thyroid d isease, other Surgical history: Reports: Psychiatric history: Reports: no psych history SOUVENIR ASSEMBLER history: Reports: no SOUVENIR ASSEMBLER history - Social History Smoking Status: Never smoker Smokeless Tobacco Status: No Alcohol use: Reports: none Drug use: Reports: none Physical Exam General: Conversant. No apparent distress. Follow commands. Appears stated age. Neck: No JVD. Trachea midline. Neck supple. Eyes: PERRL. No scleral icterus. Scleral pallor. HENT: Normocephalic and atraumatic. Moist mucus membranes. Cardiovascular: Regular rate and rhythm. Normal S1 and S2. No murmurs appreciated. Normal capillary refill. Extremities well perfused with 2+ distal pulses bilaterally. No edema. Pulmonary: Normal and equal breath sounds bilaterally, anteriorly and posteriorly. No wheezes, rales, or rhonchi. Not in respiratory distress. Speaks in full sentences. Abdomen: Soft, nondistended, and tontender. No bruits or masses. No guarding. Neuro: Alert and oriented x3. No slurred speech. No focal deficits noted. Skin:Diffuse pallor. Musculoskeletal: No bony abnormalities visualized. Moves all extremities. Psych: Normal mood. Pleasant. Makes appropriate eye contact. - General Limitations: no limitations General appearance: alert, in no apparent distress Course Vital Signs Temperature 99.0 F 08/09/19 09:56 Pulse Rate 83 08/09/19 09:56 Respiratory Rate 16 08/09/19 09:56 Blood Pressure 148/55 08/09/19 09:56 O2 Sat by Pulse Oximetry 100 08/09/19 09:56 Temperature 99.0 F 08/09/19 09:56 Pulse Rate 83 08/09/19 09:56 Respiratory Rate 16 08/09/19 09:56 Blood Pressure 148/55 08/09/19 09:56 O2 Sat by Pulse Oximetry 100 08/09/19 09:56 Oxygen Delivery Oxygen Delivery Room Air Medical Decision Making - [facility] Narrative Medical decision making narrative: 89-year-old female who presents emergency department with complaints of weakness and low hemoglobin. The patient was seen in her outpatient provider and found to be anemic down to 7.2. When she left the hospital on 08/03 her hemoglobin was 9.2. The patient does have symptoms of anemia with weakness, increased shortness of breath and intermittent episodes of lightheadedness. She appears pale but has no evidence of hypotension, tachycardia or instability. She denies any chest pain. Laboratory evaluation shows hemoglobin drop from yesterday from 7.2-7.0. Otherwise the patient does have slightly elevated troponin of 0.10. She does have new T-wave inversions in the lateral leads on EKG, likely from symptomatic anemia and demand ischemia. Given continued symptomatic anemia we will transfuse 2 units packed red blood cells and admitted to the hospital for further evaluation especially given her colonoscopy was unable to fully visualize the entirety of the colon. Discussed case with on-call hospitalist Dr. Salgado who agrees with plan for admission and accepts the patient to the inpatient service. Patient agrees with and understands course of treatment plan including plan for admission. All questions answered. - Medical Records Medical records reviewed: Yes I reviewed the patient's medical records. - Lab Data Lab results reviewed: Yes I reviewed the patient's lab results. Result diagrams: 08/11/19 09:27 08/10/19 03:39 Lab Results 08/09/19 08/09/19 08/09/19 Range/Units 10:10 10:10 10:10 WBC 11.0 (4.3-11.1) K/mcL RBC 2.61 L (3.82-4.97) M/mcL Hgb 7.0 L (11.5-15.4) g/dL Hct 23.8 L (35.3-44.9) % MCV 91.2 (83.0-100.0) fL MCH 26.8 L (28.0-33.3) pg MCHC 29.4 L (31.6-35.5) g/dL RDW 14.4 (11.5-14.5) % Plt Count 288 (140-400) K/mcL MPV 9.4 (9.4-12.4) fL Immature Gran % 0.4 (0-4) % Seg Neutrophils % 75.6 % Lymphocytes % 15.6 % Monocytes % 5.1 % Eosinophils % 2.8 % Basophils % 0.5 % Neutrophils # 8.3 (1.6-8.9) K/mcL Lymphocytes # 1.7 (0.6-4.6) K/mcL Monocytes # 0.6 (0.0-1.3) K/mcL Eosinophils # 0.3 (0.0-0.6) K/mcL Basophils # 0.1 (0.0-0.2) K/mcL PT 11.3 (9.4-12.1) Seconds INR 1.0 Sodium 140 (136-145) mEq/L Potassium 4.3 (3.5-5.1) mEq/L Chloride 100 (98-107) mEq/L Carbon Dioxide 35 H (23-29) mEq/L BUN 18 (8-23) mg/dL Creatinine 1.32 H (0.60-1.20) mg/dL Est GFR ( Amer) 46 L (> 60) Est GFR (Non-Af Amer) 38 L (> 60) BUN/Creatinine Ratio 14 (6-26) Glucose 139 H (70-105) mg/dL Calculated Osmolality 294 (280-300) Calcium 9.9 (8.6-10.3) mg/dL Troponin I 0.10 H* (< 0.04) ng/mL Blood Type Antibody Screen Crossmatch 08/09/19 Range/Units 10:10 WBC (4.3-11.1) K/mcL RBC (3.82-4.97) M/mcL Hgb (11.5-15.4) g/dL Hct (35.3-44.9) % MCV (83.0-100.0) fL MCH (28.0-33.3) pg MCHC (31.6-35.5) g/dL RDW (11.5-14.5) % Plt Count (140-400) K/mcL MPV (9.4-12.4) fL Immature Gran % (0-4) % Seg Neutrophils % % Lymphocytes % % Monocytes % % Eosinophils % % Basophils % % Neutrophils # (1.6-8.9) K/mcL Lymphocytes # (0.6-4.6) K/mcL Monocytes # (0.0-1.3) K/mcL Eosinophils # (0.0-0.6) K/mcL Basophils # (0.0-0.2) K/mcL PT (9.4-12.1) Seconds INR Sodium (136-145) mEq/L Potassium (3.5-5.1) mEq/L Chloride (98-107) mEq/L Carbon Dioxide (23-29) mEq/L BUN (8-23) mg/dL Creatinine (0.60-1.20) mg/dL Est GFR ( Amer) (> 60) Est GFR (Non-Af Amer) (> 60) BUN/Creatinine Ratio (6-26) Glucose (70-105) mg/dL Calculated Osmolality (280-300) Calcium (8.6-10.3) mg/dL Troponin I (< 0.04) ng/mL Blood Type O POSITIVE Antibody Screen NEGATIVE Crossmatch See Detail - Radiology Data Radiology results reviewed: Yes I reviewed the patient's radiology results. - EKG Data EKG #1 EKG attestation: Yes I reviewed and interpreted this EKG. EKG results narrative: Normal sinus rhythm rate of 79. Normal axis. Normal intervals. There are ST inversions in V2 through V6 otherwise no ST depressions or elevations. When compared with prior from 03/05/19 these T-wave inversions are new. Attestation Statement - Attestation Attestation: I have seen this patient with the resident physician, I have personally evaluated this patient. I had reviewed the chart and document dictation by the resident physician and aM in agreement with the information documented by the resident physician. Please see documentation by the resident physician for c omplete chart including past medical history, family medical history, review of systems, current history and physical and laboratory and imaging studies. I was present for all procedures, provided direct supervision for all procedures, was present for the entirety of all procedures and provided direct guidance during the procedures. Please see documentation by the resident physician for any procedures performed. I have reviewed all interpretations of EKGs, and reviewed all EKGs performed on patient's as well. I have also reviewed reports of imaging as provided by radiology.
[2019-08-09 10:42] LABS: Basophils # 0.1 K/mcL (0.0-0.2); Basophils % 0.5 %; Eosinophils # 0.3 K/mcL (0.0-0.6); Eosinophils % 2.8 %; Hematocrit 23.8 % (35.3-44.9); Immature Granulocytes % 0.4 % (0-4); Lymphocytes # 1.7 K/mcL (0.6-4.6); Lymphocytes % 15.6 %; Mean Corpuscular HGB Conc 29.4 g/dL (31.6-35.5); Mean Corpuscular Hemoglobin 26.8 pg (28.0-33.3); Mean Corpuscular Volume 91.2 fL (83.0-100.0); Mean Platelet Volume 9.4 fL (9.4-12.4); Monocytes # 0.6 K/mcL (0.0-1.3); Monocytes % 5.1 %; Neutrophils # 8.3 K/mcL (1.6-8.9); Platelet Count 288 K/mcL (140-400); Red Blood Count 2.61 M/mcL (3.82-4.97); Red Cell Distribution Width 14.4 % (11.5-14.5); Segmented Neutrophils % 75.6 %
[2019-08-09 10:50] LABS: Calcium 9.9 mg/dL (8.6-10.3); Potassium 4.3 mEq/L (3.5-5.1)
[2019-08-09 10:53] LABS: Prothrombin Time 11.3 Seconds (9.4-12.1)
[2019-08-09] MEDS ORDERED: Pantoprazole 40 MG VIAL IVP ONE (10:54)
[2019-08-09 10:55] LABS: Troponin I 0.1 ng/mL (< 0.04)
--- NOTE | 2019-08-09 10:55 | Emergency Department Note ---
Disposition Clinical Impression: Anemia, Acute electrocardiogram changes, Elevated troponin, GI bleeding Disposition: Admitted As Inpatient Condition: Serious Forms: ED Satisfaction Letter Time of Disposition: 10:58 General Adult HPI - General Chief complaint: ED GI Bleed Stated complaint: Low Hemoglobin Time Seen by Provider: 08/09/19 10:02 Source: patient, family Mode of arrival: ambulatory Limitations: no limitations Nursing Notes Reviewed: Yes Vital Signs Reviewed: Yes - History of Present Illness Pain Scale: 0 - Related Data Home Medications Medication Instructions Recorded Confirmed Calcium Citrate 250 mg PO DAILY 09/01/15 08/01/19 Cetirizine HCl [Zyrtec] 10 mg PO DAILY PRN 09/01/15 08/01/19 Aspirin [Lo-Dose Aspirin EC] 81 mg PO DAILY 08/01/19 08/01/19 Cholecalciferol (D-3) [Vitamin D] 5,000 unit PO DAILY 08/01/19 08/01/19 DiphenhydraMINE [Benadryl] 25 mg PO HS 08/01/19 08/01/19 Levothyroxine Sodium [Euthyrox] 75 mcg PO QAM 08/01/19 08/01/19 Riboflavin [Vitamin B-2] 100 mg PO DAILY 08/01/19 08/01/19 Previous Rx's Medication Instructions Recorded Psyllium Husk/Aspartame [Metamucil 660 gm PO DAILY #30 powder 08/03/19 [facility] Powder] Allergies Allergy/AdvReac Type Severity Reaction Status Date / Time Cortisone AdvReac Unknown Hives Verified 09/01/15 11:17 All systems ED: reviewed and negative except as stated. Review of Systems: As Per HPI Past Medical History - Past Medical History Medical history: Reports: COPD, kidney stones, myocardial infarction, thyroid disease, other Surgical history: Reports: Psychiatric history: Reports: no psych history SEAFOOD AND SERVICE MEAT MANAGER history: Reports: no SEAFOOD AND SERVICE MEAT MANAGER history - Social History Smoking Status: Never smoker Smokeless Tobacco Status: No Alcohol use: Reports: none Drug use: Reports: none Physical Exam - General Limitations: no limitations General appearance: alert, in no apparent distress Course Vital Signs Temperature 99.0 F 08/09/19 09:56 Pulse Rate 83 08/09/19 09:56 Respiratory Rate 16 08/09/19 09:56 Blood Pressure 148/55 08/09/19 09:56 O2 Sat by Pulse Oximetry 100 09/25/19 09:56 Temperature 99.0 F 08/09/19 09:56 Pulse Rate 83 08/09/19 09:56 Respiratory Rate 16 08/09/19 09:56 Blood Pressure 148/55 08/09/19 09:56 O2 Sat by Pulse Oximetry 100 08/09/19 09:56 Oxygen Delivery Oxygen Delivery Room Air Medical Decision Making - Lab Data Result diagrams: 08/09/19 10:10 08/09/19 10:10 Lab Results 08/09/19 08/09/19 Range/Units 10:10 10:10 WBC 11.0 (4.3-11.1) K/mcL RBC 2.61 L (3.82-4.97) M/mcL Hgb 7.0 L (11.5-15.4) g/dL Hct 23.8 L (35.3-44.9) % MCV 91.2 (83.0-100.0) fL MCH 26.8 L (28.0-33.3) pg MCHC 29.4 L (31.6-35.5) g/dL RDW 14.4 (11.5-14.5) % Plt Count 288 (140-400) K/mcL MPV 9.4 (9.4-12.4) fL Immature Gran % 0.4 (0-4) % Seg Neutrophils % 75.6 % Lymphocytes % 15.6 % Monocytes % 5.1 % Eosinophils % 2.8 % Basophils % 0.5 % Neutrophils # 8.3 (1.6-8.9) K/mcL Lymphocytes # 1.7 (0.6-4.6) K/mcL Monocytes # 0.6 (0.0-1.3) K/mcL Eosinophils # 0.3 (0.0-0.6) K/mcL Basophils # 0.1 (0.0-0.2) K/mcL Sodium 140 (136-145) mEq/L Potassium 4.3 (3.5-5.1) mEq/L Chloride 100 (98-107) mEq/L Carbon Dioxide 35 H (23-29) mEq/L BUN 18 (8-23) mg/dL Creatinine 1.32 H (0.60-1.20) mg/dL Est GFR ( Amer) 46 L (> 60) Est GFR (Non-Af Amer) 38 L (> 60) BUN/Creatinine Ratio 14 (6-26) Glucose 139 H (70-105) mg/dL Calculated Osmolality 294 (280-300) Calcium 9.9 (8.6-10.3) mg/dL Attestation Statement - Attestation Attestation: I have seen this patient with the resident physician, I have personally evaluated this patient. I had reviewed the chart and document dictation by the resident physician and aM in agreement with the information documented by the resident physician. Please see documentation by the resident physician for complete chart including past medical history, family medical history, review of systems, current history and physical and laboratory and imaging studies. I was present for all procedures, provided direct supervision for all procedures, was present for the entirety of all procedures and provided direct guidance during the procedures. Please see documentation by the resident physician for any procedures performed. I have reviewed all interpretations of EKGs, and reviewed all EKGs performed on patient's as well. I have also reviewed reports of imaging as provided by radiology. Patient presents emergency Department with decreased hemoglobin and weakness. He states he just does not have any energy she has no get up and go left. She states that she was just recently admitted she had a colonoscopy which was for lower GI bleeding but the family and the patient reports they could not get past the splenic flexure and see high enough, and did not take any biopsies did not see obvious sources of bleeding. The bleeding seemed to slow down and no more bright red blood but then she started having dark stool but now her stool today was not as dark. She states that she has no headache or neck pain chest pain and no palpitations no urinary changes no new swelling she is on aspirin typically but has not taken this for a week and a half is on no other blood thinners. On presentation she is pale in appearance conjunctival pallor and pallor of the nailbeds however is alert awake and talking, hemodynamically normal without ta chycardia without hypotension. Cranial nerves are intact heart is regular no significant murmurs rubs or gallops or JVD lungs are clear abdomen is soft and nontender trace to 1+ bilateral lower extremity edema, no unilateral swelling palpable cord calf tenderness homicidal or clinical evidence of DVT. Reviewed outpatient laboratory studies which did show hemoglobin of 7.2 decreased from 9.4. EKG was obtained, which demonstrated increased lateral T-wave inversions from prior EKG no ST elevation or ST depression no other acute change normal sinus rhythm. Basic laboratory studies were ordered. Type and screen and transfusion was ordered. Patient was given 1 dose of IV Protonix, secondary to reported dark stools, although reported that these are had slowed down and now appeared normal. She will be admitted to the hospital for further evaluation and management, her repeat CBC demonstrated hemoglobin was 7.0 decreased from 7.2 from yesterday. Patient admitted for transfusion and further evaluation of progressive anemia. Troponin was also found to be mildly elevated at 0.1, she has current bleeding and anemia, this is likely demand ischemia related to anemia, no indication for blood thinner she has no chest pain again does have some EKG changes, and transfusion initiated for this, this will require further evaluation in the hospital. She remained alert awake and talking here in the emergency department, without chest pain, without hypotension or tachycardia. Total critical care time as provided by myself excluding any procedures performed was 30 minutes.
[2019-08-09] MEDS ORDERED: 0.9 % Sodium Chloride 250 ML ONE (11:15)
[2019-08-09] MEDS ORDERED: Acetaminophen 325 MG TABLET PO PRN (14:32)
[2019-08-09] MEDS ORDERED: Ondansetron 4 MG/2 ML VIAL IVP PRN (14:32)
[2019-08-09] MEDS ORDERED: Naloxone 0.4 MG/ML INJ IVP PRN (14:32)
--- NOTE | 2019-08-09 14:39 | Internal Med History&Physical ---
Date of Encounter: 08/09/19 Time of Encounter: 13:00 Internal Medicine - H&P: HPI Admitted From: Emergency Dept Plans for Post Hospital Care: Home History of present illness: Ms. Lee is a 89 year old female with a history of COPD, CAD parietal myocardial infarction hypothyroidism and GI bleed. She stated that she was seen last week for GI bleed had colonoscopy however the study was limited due to colonic strictures. She says she was discharged on the however continue to have melenic stools until Wednesday. She had a follow-up appointment with her primary care physician and upon laboratory workup was noted to be severely anemic as such was referred to the ED to be evaluated. Patient endorses a history of chronic respiratory failure on 3 L of oxygen therapy but of late she has been quite fatigued and dyspneic and has had to use her inhalers more frequently. She reports worsening shortness of breath and generalized weakness for the past 3 days. Patient's daughter Genoveva can be reached cell phone [phone]. Among her initial work up ED was a CBC which revealed a hemoglobin of 7, hemoglobin at discharge on July 24 was 9.5, stable CKD noted on BMP and an elevated troponin but she denies any chest pain. EKG obtained at the EGD also showed new T-wave inversion in lateral leads but otherwise no ST segment elevation or depression Past Med Surg Social Fam HX - Past Medical History Medical history: COPD, kidney stones, myocardial infarction, thyroid disease, other Additional medical history: Diverticulosis Psychiatric history: no psych history - Past Surgical History Surgical History: Additional surgical history: tubal ligation, kidney stone removal - Social History Smoking Status: Former smoker Smokeless Tobacco Status: No Alcohol use: none Drug use: none - Family History Mother Living Status: Sister Living Status: Internal Medicine - H&P: Meds Calcium Citrate 250 mg PO DAILY 09/01/15 [History] Aspirin [Lo-Dose Aspirin EC] 81 mg PO HS 08/01/19 [History] Cholecalciferol (D-3) [Vitamin D] 5,000 unit PO DAILY 08/01/19 [History] DiphenhydraMINE [Benadryl] 25 mg PO HS 08/01/19 [History] Levothyroxine Sodium [Euthyrox] 75 mcg PO QAM 08/01/19 [History] Riboflavin [Vitamin B-2] 100 mg PO DAILY 08/01/19 [History] Benefiber 4 gm PO DAILY 08/09/19 [History] Allergy/AdvReac Type Severity Reaction Status Date / Time Cortisone AdvReac Unknown Hives Verified 09/01/15 11:17 All Systems PM: A 10-system review of systems was performed and is negative for pertinent findings except as documented above in the HPI. Review of systems: GENERAL: Denies fever, chills, fatigue or night sweats. Reports generalized fatigue and weakness DERMATOLOGIC: Denies itch, rash or lesions HEENT: Denies headache, blurriness, diplopia or decreased visual acuity, ear pain, tinnitus, rhinorrhea, sinus tenderness or sore throat RESPIRATORY: Reports SOB, denies cough, hemoptysis or pleuritic chest pain CARDIOVASCULAR: Denies chest pain, LE edema, palpitation or syncope reported dyspnea on mild exertion GASTRO INTESTINAL: Denies cramps, nausea/vomiting, diarrhea or constipation, melena MUSCULOSKELATAL: Denies muscle pain/weakness, joint tenderness/pain or swelling PSYCH: Denies worsening anxiety, or depression NEURO: Denies vertigo, dizziness, or ataxia GENITURINARY: Denies dysuria, nocturia or urinary incontinence - Constitutional Vitals: Temp Pulse Resp BP Pulse Ox 97.5 F L 75 16 146/66 99 08/09/19 13:45 08/09/19 13:45 08/09/19 13:45 08/09/19 13:45 08/09/19 13:42 Exam: GENERAL: Obese female NAD, A&O x3, pleasant and conversant, daughter at the bedside SKIN: No skin lesions or rashes, non-jaundiced EYES: EOMI, PERRLA, no sclera icterus HENT: Head atraumatic, no facial asymmetry, frontal and maxillary sinus non- tender, normal hearing, oropharynx and mucosa moist and without any exudates NECK: No cervical lymphadenopathy, trachea midline, thyroid is palpable does not appear enlarged LUNGS: vesicular breath sounds, clear to auscultation, no wheeze, rhonchi, rales or crackles. Non labored respirations HEART: Normal rate and rhythm, no murmurs or rubs ABDOMEN: soft, non-tender, non-distended, bowel sounds x 4 normoactive EXTRMITIES: No LE asymmetry, No LE edema, pedal pulses 1+ and radial pulses 2 + and equal bilaterally NEURO: Speech and comprehension appears intact. PSYCH: Cooperative, non- anxious or irritable, mood and affect is appropriate Internal Med - H&P Results - Labs CBC & Chem 7: 08/09/19 14:53 08/09/19 10:10 Labs: Short CBC 08/09/19 Range/Units 10:10 WBC 11.0 (4.3-11.1) K/mcL Hgb 7.0 L (11.5-15.4) g/dL Hct 23.8 L (35.3-44.9) % Plt Count 288 (140-400) K/mcL Neutrophils # 8.3 (1.6-8.9) K/mcL BMP 08/09/19 10:10 Sodium 140 Potassium 4.3 Chloride 100 Carbon Dioxide 35 H BUN 18 Creatinine 1.32 H Glucose 139 H Calcium 9.9 Cardiac Enzymes 08/09/19 Range/Units 10:10 Troponin I 0.10 H* (< 0.04) ng/mL - Assessment and Plan (1) Acute blood loss anemia Current Visit: Yes Status: Acute Assessment and plan: Patient with recent diagnosis of diverticulosis, recent admission for GI bleed. She currently started the melenic episodes stopped Wednesday before she presented. We will trend H&H she has been transfused 2 units packed red blood cells in the stool guaiac (2) Elevated troponin Current Visit: Yes Status: Acute Assessment and plan: Troponin 1 was elevated at 0.1 in the setting of acute blood loss anemia likely type II demand ischemia she denies any chest pain we will trend (3) CKD (chronic kidney disease) stage 3, GFR 30-59 ml/min Current Visit: Yes Status: Chronic Assessment and plan: Creatinines of 1.32 is at baseline of 1.28-1.54 monitor clinically correlate (4) COPD (chronic obstructive pulmonary disease) Current Visit: Yes Status: Chronic Assessment and plan: This is no COPD exacerbation DuoNeb ordered Qualifiers: COPD type: unspecified COPD Qualified Code(s): J44.9 - Chronic obstructive pulmonary disease, unspecified (5) DVT prophylaxis Current Visit: Yes Status: Acute Assessment and plan: SCDs due to GI bleed - Time Spent With Patient Total time spent is greater than 50% in coordination of care (as documented) at patient's floor/unit and/or counseling patient:
[2019-08-09 15:19] LABS: Hematocrit 28.2 % (35.3-44.9)
[2019-08-09 15:25] LABS: Hemoglobin 8.7 g/dL (11.5-15.4)
[2019-08-09] MEDS ORDERED: 0.9 % Sodium Chloride Mini Bag 100 ML ONE (15:59)
[2019-08-09] MEDS ORDERED: Ipratropium/Albuterol Neb 3 ML IH PRN (20:27)
[2019-08-09 21:12] LABS: Hematocrit 32.6 % (35.3-44.9); Hemoglobin 10.2 g/dL (11.5-15.4)
--- NOTE | 2019-08-09 21:35 | Electrocardiograph Report ---
[address] [place] [address] Test Date: 2019-08-09 Pat Name: Leslee Lee Department: [id number] Room: 3A13 Gender: Garnetter: : 1930 Requested By: Jolynn Rubalcava Order Number: [id number] Reading MD: Jeanne Hager Measurements Intervals [place] Rate: 79 P: -9 NM: 184 QRS: 16 QRSD: 78 T: 168 QT: 354 QTc: 406 Interpretive Statements Sinus rhythm Abnormal R-wave progression, early transition Repol abnrm suggests ischemia, diffuse leads Electronically Signed On 08-09-2019 21:33:39 EDT by Jeanne Hager
[2019-08-10 04:32] LABS: Basophils # 0.1 K/mcL (0.0-0.2); Basophils % 0.6 %; Eosinophils # 0.4 K/mcL (0.0-0.6); Hematocrit 34.1 % (35.3-44.9); Hemoglobin 10.8 g/dL (11.5-15.4); Immature Granulocytes % 0.3 % (0-4); Lymphocytes # 2.3 K/mcL (0.6-4.6); Lymphocytes % 21.3 %; Mean Corpuscular HGB Conc 31.7 g/dL (31.6-35.5); Mean Corpuscular Volume 88.3 fL (83.0-100.0); Mean Platelet Volume 9.4 fL (9.4-12.4); Monocytes # 0.6 K/mcL (0.0-1.3); Neutrophils # 7.5 K/mcL (1.6-8.9); Platelet Count 280 K/mcL (140-400); Red Blood Count 3.86 M/mcL (3.82-4.97); Red Cell Distribution Width 14.4 % (11.5-14.5); Segmented Neutrophils % 68.8 %; White Blood Count 10.9 K/mcL (4.3-11.1)
[2019-08-10 04:53] LABS: Calcium 9.1 mg/dL (8.6-10.3); Magnesium 1.9 mg/dL (1.6-2.6)
[2019-08-10] MEDS: Pantoprazole 40 MG VIAL IVP SCH (08:45)
[2019-08-10 10:37] LABS: Hematocrit 37.9 % (35.3-44.9)
[2019-08-10] MEDS: Budesonide/Formoterol 160/4.5 1 PUFF INH IH SCH ×2 (10:39→20:43)
[2019-08-10 10:55] LABS: % Iron Saturation 19 % (15-50); Iron 68 mcg/dL (50-170); Transferrin 257 mg/dL (203-362)
[2019-08-10 11:13] LABS: Ferritin 49 ng/mL (10-120)
--- NOTE | 2019-08-10 11:15 | Internal Med Progress Note ---
Hospitalist Progress Note - Encounter Date of Encounter: 08/10/19 Time of Encounter: 11:13 - Subjective Interval History: Patient was seen and examined at bedside today. Pt reports some wekness howere, she reports she felt much better than yesterday. She denies chest pain, palpitation, and difficulty in breathing. She denies fever, chills, nausea, vomiting and diarrhea. - Exam Vitals: Temp Pulse Resp BP Pulse Ox 98.4 F 73 18 176/90 98 08/10/19 07:00 08/10/19 07:00 08/10/19 10:40 08/10/19 07:00 08/10/19 10:40 Exam: General: A & O 3, In no acute distress CVS S1 and S2 regular, no murmur RS: Clear to air entry bilaterally, no wheeze, no crackles Abdomen: Soft and nontender. Bowel sounds normal 4 Extremities: No cyanosis, clubbing, and edema Neurology: Cranial 2 through 12 normal. Motor strength 5/5 bilaterally. Sensation intact Psychiatry: A and O X 3 - Assessment and Plan (1) Acute blood loss anemia Current Visit: Yes Status: Acute Assessment and Plan: Patient was admitted yesterday for lower GI bleed. Patient recently was admitted for lower GI bleed and had colonoscopy done which was difficult due to scope could not pass through sigmoid colon. Patient's hemoglobin yesterday was 7. Patient is status post PRBC 2. Trend H&H. Hemoglobin this morning is 12.2 GI on consult Plan to do EGD today. If EGD is completely normal then planto do a colonoscopy tomorrow. (2) Elevated troponin Current Visit: Yes Status: Acute Assessment and Plan: in the setting acute blood loss anemia likely type II demand ischemia she denies any chest pain we will trend troponin. (3) CKD (chronic kidney disease) stage 3, GFR 30-59 ml/min Current Visit: Yes Status: Chronic Assessment and Plan: Abdomen today has trended down to 1.2 which appears to be patient's baseline creatinine. We will continue to monitor. (4) COPD (chronic obstructive pulmonary disease) Current Visit: Yes Status: Chronic Assessment and Plan: Continue DuoNeb, Symbicort, and rescue inhaler. (5) Hypothyroidism (acquired) Current Visit: Yes Status: Chronic Assessment and Plan: Continue levothyroxine 75 g daily. (6) DVT prophylaxis Current Visit: Yes Status: Acute Assessment and Plan: SCDs due to GI bleed - Time Spent with Patient Total time spent is greater than 50% in coordination of care (as documented) at patient's floor/unit and/or counseling patient: 25 - 35 minutes Plan of Care Discussed with: patient Internal Medicine: Result - Labs CBC & Chem 7: 08/10/19 10:19 08/10/19 03:39 Labs: Short CBC 08/09/19 08/09/19 08/10/19 Range/Units 14:53 20:41 03:39 WBC 10.9 (4.3-11.1) K/mcL Hgb 8.7 L D 10.2 L D 10.8 L (11.5-15.4) g/dL Hct 28.2 L 32.6 L 34.1 L (35.3-44.9) % Plt Count 280 (140-400) K/mcL Neutrophils # 7.5 (1.6-8.9) K/mcL 08/10/19 Range/Units 10:19 WBC (4.3-11.1) K/mcL Hgb 12.0 (11.5-15.4) g/dL Hct 37.9 (35.3-44.9) % Plt Count (140-400) K/mcL Neutrophils # (1.6-8.9) K/mcL BMP 08/10/19 03:39 Sodium 141 Potassium 4.0 Chloride 101 Carbon Dioxide 34 H BUN 14 Creatinine 1.23 H Glucose 107 H Calcium 9.1 Cardiac Enzymes 08/09/19 08/09/19 Range/Units 20:41 22:51 Troponin I 0.17 H* 0.16 H* (< 0.04) ng/mL - ABG Interpretation ABG results: PT/INR, D-dimer PT 11.3 Seconds (9.4-12.1) 08/09/19 10:10 Consult Discharge Plan - Plan Referrals: Estella Amos APN [Primary Care Provider] - (4) COPD (chronic obstructive pulmonary disease) Qualifiers: COPD type: unspecified COPD Qualified Code(s): J44.9 - Chronic obstructive pulmonary disease, unspecified
[2019-08-10 11:19] LABS: Folate 8.7 ng/mL (3.0-16.0)
--- NOTE | 2019-08-10 12:11 | Gastroenterology Consult Note ---
<Nima Tovar - Last Filed: 08/10/19 12:08> Date of Encounter: 08/10/19 Time of Encounter: 10:25 - Assessment and plan (1) Anemia Current Visit: Yes Status: Acute Assessment and plan: Hgb 7.2 on 08/08 and PCP sent patient to ED for evaluation. On arrival to the ED Hgb 7, she received 2 units PRBC and Hgb 10.8 this AM. Continue to monitor CBC and transfuse PRBC as needed. Plan forEGD today to r/o esophagitis, gastritis, duodenitis, PUD, MW tear, or AVM. Plan for EGD today to r/o esophagitis, gastritis, duodenitis, PUD, MW tear, or AVM. Keep NPO for scope. If EGD negative will consider repeating colonoscopy tomorrow. Qualifiers: Anemia type: unspecified type Qualified Code(s): D64.9 - Anemia, unspecified (2) GI bleeding Current Visit: Yes Status: Acute Assessment and plan: As above. Qualifiers: GI bleed type/associated pathology: unspecified gastrointestinal hemorrhage type Qualified Code(s): K92.2 - Gastrointestinal hemorrhage, unspecified - Time Spent With Patient Total time spent is greater than 50% in coordination of care (as documented) at patient's floor/unit and/or counseling patient: GI History of Present Illness - Data of Consult Patient: known to practice within the last 3 years Consult date: 08/10/19 Requesting Physician: South Zaman MD - Consult Narrative Reason for consult: Lower GI bleed History of present illness: Ms. Lee is a 89 year old female with PMHx of COPD, [place], JEWEL, diverticulosis, and recent GI bleed. She was admitted 08/01 with rectal bleeding with Hgb 11.2. Cscope completed 08/03 and was unable to pass scope through sigmoid colon, no blood seen, internal hemorrhoids and diverticulosis found. She was discharged 08/03 with Hgb 9.5. She reports having dark stool at home and complains of feeling weak. Hgb 7.2 on 08/08 and PCP sent patient to ED for evaluation. On arrival to the ED Hgb 7, she received 2 units PRBC and Hgb 10.8 this AM. We have been consulted to evaluate her anemia. Procedures: Colonoscopy 08/03/2019 Dr. Carr: Sigmoid colon very fixed and unable to pass scope past the sigmoid colon; diverticulosis and internal hemorrhoids were found. EGD 09/02/2015 Dr. Carr: Schatzki ring which was dilated, gastritis, duodenitis, medium hiatal hernia. EGD 12/26/2012 Dr. Novoa: Duodenal ulcer, gastritis, eosinophilic gastroenteritis. NSAIDs: ASA Anticoagulation: None Past Med Surg Social Fam HX - Past Medical History Medical history: COPD, kidney stones, myocardial infarction, thyroid disease, other Additional medical history: Diverticulosis Psychiatric history: no psych history - Past Surgical History Surgical History: Additional surgical history: tubal ligation, kidney stone removal - Social History Smoking Status: Former smoker Smokeless Tobacco Status: No Alcohol use: none Drug use: none - Family History Mother Living Status: Sister Living Status: - Gastrointestinal Gastrointestinal: Present: as per HPI - Constitutional Constitutional: as per HPI - EENT Eyes: as per HPI Ears: Present: as per HPI Nose, mouth and throat: Present: as per HPI - Cardiovascular Cardiovascular ROS: Present: as per HPI - Respiratory Respiratory IM: Present: as per HPI - Genitourinary Genitourinary: Absent: change in color, Urinary frequency - Neurological ROS Neurological GI: Present: as per HPI - Hematologic/Lymphatic Hematologic/Lymphatic pediatric: Present: as per HPI - Musculoskeletal Musculoskeletal ROS GI: Present: as per HPI - Integumentary Integumentary GI: Present: as per HPI - Psychiatric ROS Psychiatric GI: Present: as per HPI - Endocrine Endocrine IM: Present: as per HPI - Constitutional Vitals: Temp Pulse Resp BP Pulse Ox 98.3 F 74 18 155/75 100 08/10/19 11:05 08/10/19 11:05 08/10/19 10:40 08/10/19 11:05 08/10/19 11:05 General appearance: Present: cooperative, A&O X 3, no acute distress, answers questions appropriately - Head Head exam: Present: atraumatic, normocephalic - Eye Eye exam: Present: normal appearance, sclera anicteric - ENT ENT exam: Present: mucous membranes dry - Neck Neck exam general surgery: Present: normal inspection, trachea midline - Respiratory Respiratory exam: Present: decreased breath sounds, CTAB. Absent: rales, rhonchi - Cardiovascular Cardiovascular exam: Present: RRR, +S1, +S2 - GI/Abdominal GI/Abdominal exam: Present: soft, no peritoneal signs. Absent: distended, firm, guarding, tenderness - Rectal Rectal exam: Present: deferred - Extremities Exam Extremities exam: Present: warm - Neurological Exam Neurological exam: Present: no focal deficits - Psychiatric Psychiatric exam: Present: normal affect, normal mood - Skin Skin exam: Present: dry, intact, normal color, warm Results - Labs CBC & Chem 7: 08/10/19 10:19 08/10/19 03:39 Labs: Last Result 08/10/19 08/10/19 08/10/19 03:39 07:40 10:19 Calcium 9.1 Iron % Saturation Transferrin Ferritin Vitamin B12 900 Folate 8.7 Stool Occult Blood Positive A 08/10/19 10:19 Calcium Iron 68 % Saturation 19 Transferrin 257 Ferritin 49 Vitamin B12 Folate Stool Occult Blood Entire Visit 08/10/19 08/10/19 08/10/19 03:39 10:19 10:19 Hgb 10.8 L 12.0 Hct 34.1 L 37.9 Ferritin Folate 8.7 08/10/19 10:19 Hgb Hct Ferritin 49 Folate - ABG ABG results: PT/INR, D-dimer PT 11.3 Seconds (9.4-12.1) 08/09/19 10:10 Consult Discharge Plan - Plan Referrals: Estella Amos APN [Primary Care Provider] - <Shira Carr - Last Filed: 08/10/19 18:08> Date of Encounter: 08/10/19 Time of Encounter: 14:00 - Time Spent With Patient Total time spent is greater than 50% in coordination of care (as documented) at patient's floor/unit and/or counseling patient: GI History of Present Illness - Data of Consult Requesting Physician: South Zaman MD - Consult Narrative History of present illness: Ms. Lee is a 89 year old female - Constitutional Vitals: Temp Pulse Resp BP Pulse Ox 98.4 F 67 16 147/84 94 08/10/19 18:01 08/10/19 18:01 08/10/19 18:01 08/10/19 18:01 08/10/19 18:01 Results - Labs CBC & Chem 7: 08/10/19 10:19 08/10/19 03:39 Labs: Last Result 08/10/19 08/10/19 08/10/19 07:40 10:19 10:19 Iron 68 % Saturation 19 Transferrin 257 Ferritin 49 Vitamin B12 900 Folate 8.7 Stool Occult Blood Positive A Entire Visit 08/10/19 08/10/19 08/10/19 10:19 10:19 10:19 Hgb 12.0 Hct 37.9 Ferritin 49 Folate 8.7 - ABG ABG results: PT/INR, D-dimer PT 11.3 Seconds (9.4-12.1) 08/09/19 10:10 - Attending Attestation I have personally performed a face to face evaluation on this patient. I have reviewed and agree with the care plan. History and Exam by me shows: pt seen. Per patient she was the having dark stool till Wednesday but none since then. On examination: Abdomen is soft.A: Blood loss anemia with dark stool. Rule out gastric etiology. Recommendation: EGD today. Follow H&H
[2019-08-10] MEDS: 0.9 % Sodium Chloride 1,000 ML IVC SCH (12:16)
[2019-08-10] MEDS ORDERED: *HR* Midazolam HCl 5 MG/5 ML VIAL IVP ONE ×2 (16:37→17:21)
[2019-08-10] MEDS ORDERED: *HR* FentaNYL (PF) 100 MCG/2 ML VIAL ONE (16:37)
[2019-08-10] MEDS ORDERED: Simethicone 40 MG/0.6 ML MLS IR ONE (17:21)
[2019-08-10] MEDS ORDERED: *HR* FentaNYL (PF) 100 MCG/2 ML VIAL IVP ONE (17:21)
--- NOTE | 2019-08-10 17:22 | Pre-Sedation Evaluation ---
Pre-sedation evaluation - Pre-sedation checklist Date of procedure: 08/10/19 Procedure: egd Recent Vitals: Last Vital Signs Temp 98.6 F 08/10/19 17:09 Pulse 83 08/10/19 17:20 Resp 18 08/10/19 17:20 BP 175/84 08/10/19 17:20 Pulse Ox 96 08/10/19 17:20 H&P (including ROS) documented in medical record: Yes Previous reaction to sedatives/anesthetics: No Dietary Status: NPO after Midnight Dentition: dentures removed ASA Classification *see protocol: CLASS III-Severe systemic disease
[2019-08-10] MEDS ORDERED: *HR* Metoprolol 5 MG/5 ML VIAL IVP PRN (17:50)
[2019-08-11] MEDS: Budesonide/Formoterol 160/4.5 1 PUFF INH IH SCH (07:43)
[2019-08-11] MEDS: Pantoprazole 40 MG VIAL IVP SCH (09:05)
[2019-08-11] MEDS: 0.9 % Sodium Chloride 1,000 ML IVC SCH (09:05)
--- NOTE | 2019-08-11 09:32 | Discharge Summary ---
- NOTES TO OUTPATIENT PROVIDER Notes to Outpatient Provider: Pt was admitted for the dark stool and GI bleed. Patient received 2 PRBC. Patient had EGD done which was unremarkable. GI was not consulted. Patient will be discharged in stable condition. Follow up with GI in 2 weeks. Plan for colonoscopy outpatient. Will put PCP within one week to repeat H&H. Date of Encounter: 08/11/19 Time of Encounter: 09:25 - Discharge Diagnosis (1) Acute blood loss anemia Priority: Primary Status: Acute (2) Elevated troponin Priority: Secondary Status: Acute (3) CKD (chronic kidney disease) stage 3, GFR 30-59 ml/min Priority: Secondary Status: Chronic (4) COPD (chronic obstructive pulmonary disease) Priority: Secondary Status: Chronic Qualifiers: COPD type: unspecified COPD Qualified Code(s): J44.9 - Chronic obstructive pulmonary disease, unspecified (5) Hypothyroidism (acquired) Priority: Secondary Status: Chronic (6) DVT prophylaxis Priority: Secondary Status: Acute Hospital course: Ms. Lee is a 89 year old female was admitted for the dark stool and GI bleed. Patient received 2 PRBC. Patient had EGD done which was unremarkable. GI was not consulted. Patient will be discharged in stable condition. Follow up with GI in 2 weeks. Plan for colonoscopy outpatient. Will put PCP within one week to repeat H&H. Discharge discussed with: patient, family, nurse, social work, medical sales consultant - Time Spent with Patient Total time spent providing and/or coordinating discharge services: 35 Time spent: Greater than 30 minutes - Discharge Medications Prescriptions: New Omeprazole [PriLOSEC] 40 mg PO DAILY 15 Days #15 cap Continued Calcium Citrate 250 mg PO DAILY DiphenhydraMINE [Benadryl] 25 mg PO HS Cholecalciferol (D-3) [Vitamin D] 5,000 unit PO DAILY Aspirin [Lo-Dose Aspirin EC] 81 mg PO HS Riboflavin [Vitamin B-2] 100 mg PO DAILY Levothyroxine Sodium [Euthyrox] 75 mcg PO QAM Benefiber 4 gm PO DAILY Albuterol Sulfate [Albuterol Sulfate Hfa] 1 puff PO Q4H PRN PRN Reason: Shortness Of Breath/Wheezing Symbicort 160/4.5 2 inh PO BID Home Medications: Calcium Citrate 250 mg PO DAILY 10/18/15 [History] Aspirin [Lo-Dose Aspirin EC] 81 mg PO HS 08/01/19 [History] Cholecalciferol (D-3) [Vitamin D] 5,000 unit PO DAILY 08/01/19 [History] DiphenhydraMINE [Benadryl] 25 mg PO HS 08/01/19 [History] Levothyroxine Sodium [Euthyrox] 75 mcg PO QAM 08/01/19 [History] Riboflavin [Vitamin B-2] 100 mg PO DAILY 08/01/19 [History] Benefiber 4 gm PO DAILY 08/09/19 [History] Albuterol Sulfate [Albuterol Sulfate Hfa] 1 puff PO Q4H PRN 08/10/19 [History] Symbicort 160/4.5 2 inh PO BID 08/10/19 [History] Omeprazole [PriLOSEC] 40 mg PO DAILY 15 Days #15 cap 08/11/19 [Rx] Allergies/Adverse Reactions: Allergy/AdvReac Type Severity Reaction Status Date / Time Cortisone AdvReac Unknown Hives Verified 09/01/15 11:17 Date of admission: 08/09/19 13:01 Primary care physician: Estella Amos APN Consults: 08/10/19 08:41 Consult to Gastroenterology [CONS] Stat Consulting Provider: [facility] Reason for Consult: Lower GI bleed Call Completed: Yes Discharging clinician: South Zaman - Constitutional Vitals: Temp Pulse Resp BP Pulse Ox 98.3 F 89 16 175/76 95 08/11/19 06:58 08/11/19 06:58 08/11/19 07:45 08/11/19 06:58 08/11/19 07:45 General appearance: Present: cooperative, A&O X 3 Exam: General: A & O 3, In no acute distress CVS S1 and S2 regular, no murmur RS: Clear to air entry bilaterally, no wheeze, no crackles Abdomen: Soft and nontender. Bowel sounds normal 4 Extremities: No cyanosis, clubbing, and edema Neurology: Cranial 2 through 12 normal. Motor strength 5/5 bilaterally. Sensation intact Psychiatry: A and O X 3 - Patient Status Disposition: Home, Self-Care Condition: Good Overall status at discharge: patient is progressing back to baseline - Discharge Instructions Follow Up With: Estella Amos APN [Primary Care Provider] - - Diet and Activity Activity: increase activity as tolerated Diet: advance to your usual diet, low salt diet
[2019-08-11 09:42] LABS: Hemoglobin 10.3 g/dL (11.5-15.4)
[2019-08-11 10:53] VITALS: BP 173/78
== END 2019-08-11 14:31 | disposition home or self-care (01) ==
LOC: 3ANU 09:50 → EMEROOARM 09:50 → SUATTDRO 13:01 → 3ANU 13:24
PROVIDERS: ADMIT Pharmacist; ATTEND Family Medicine